=== PATIENT | male | born 1930 | race Caucasian/White ===

== ENCOUNTER 2016-12-07 09:00 | Day surgery (SDC) | payer MEDICARE ==
[2016-12-04 10:50] LABS: HEMATOCRIT 40.5 % (42.0-54.0); HEMOGLOBIN 13.8 g/dL (13.5-17.5); MCH 31.3 pg (26.0-34.0); MCHC 34.1 g/dL (31.0-37.0); MCV 91.8 fL (80.0-100.0); MEAN PLATELET VOLUME 10.2 fL (7.4-10.4); RBC 4.41 10x6/uL (4.20-6.10); RDW 12.8 % (11.5-14.5); WBC 2.4 10x3/uL (4.8-10.8)
[2016-12-04 10:55] LABS: PLATELET COUNT 70 10x3/uL (130-400)
[2016-12-04 11:04] LABS: ANION GAP 12.1 mmol/L (8-16); APTT 30.5 SECONDS (22.8-39.4); CALCIUM 8.8 mg/dL (8.5-10.1); CARBON DIOXIDE 28.9 mmol/L (21.0-32.0); CREATININE - SERUM 1.3 mg/dL (0.6-1.3); INR 1.04 (0.85-1.17); PROTIME 13.5 SECONDS (11.6-15.0)
[2016-12-04 11:34] LABS: EOSINOPHILS 2 % (0-7); LYMPHOCYTES 29 % (15-50); MONOCYTES 9 % (2-11); NEUTROPHILS 59 % (40-80)
[2016-12-04 11:37] LABS: PLATELET ESTIMATE DECREASED
[~2016-12-07] VITALS: Ht 172.7 cm; Wt 79.4 kg
[~2016-12-07 09:00] MED LIST: ASPIRIN EC81 M1 PO; LEVOTHYROXINE100 MCG PO; NORVASC10 MG PO
[2016-12-07 10:31] VITALS: BP 140/79; Ht 172.7 cm; Wt 79.4 kg
[2016-12-07] MEDS ORDERED: HYDROCODONE-APA1 TAB PO (13:05)
--- NOTE | 2016-12-14 13:14 | OP ---
PATIENT NAME: DUTCH MAS MEDICAL RECORD: [id number] :30 LOCATION:D.OPS ADMISSION DATE: SURGEON: CHRISSY CORDERO MD OPERATION DATE: 12/07/16 DATE OF OPERATION: 12/07/2016 PREOPERATIVE DIAGNOSES: Symptomatic right olecranon bursa. POSTOPERATIVE DIAGNOSIS: Symptomatic right olecranon bursa. PROCEDURE: Excision of symptomatic right olecranon bursa. SURGEON: Chrissy Cordero MD ANESTHESIA: General. INTRAOPERATIVE COMPLICATIONS: None. SUMMARY OF PATHOLOGIC FINDINGS: Essentially, this was a painful large olecranon bursa without infection. OPERATIVE SUMMARY IN DETAIL: After obtaining the appropriate preoperative orthopedic surgery consent as well as anesthetic consultation, evaluation and clearance, the patient was brought to the operating room and placed on the table in supine position. After general laryngeal mask was administered, the patient was placed in left lateral decubitus position. All pressure points were padded to include down leg peroneal nerve pad as well as axillary roll. The patient's right upper extremity was prepped and draped in routine sterile fashion. The arm was elevated and exsanguinated, tourniquet inflated to 250 mmHg. Midline incision was taken across the olecranon and dissected around both proximally and distally, medially and laterally. The entire bursal sac was taken out. The tip of the olecranon was smoothened of any osteophytic or prominent soft tissue abscess. The wound was copiously irrigated and then closed with #1 Vicryl, 2-0 Vicryl and skin heidi. Sterile dressings were applied. The patient was awakened and taken to the recovery room in stable condition. All final needle and sponge counts were correct. TRANSINT:[id number] Voice Confirmation ID: [id number] DOCUMENT ID: [id number] CHRISSY CORDERO MD at 1314 CC: [id number] DICTATION DATE: 12/08/16 1043 TELEMETRY MONITOR: 12/13/16 2348 [facility] 12/07/[address] [address]
== END 2016-12-07 15:05 | disposition home or self-care (01) ==
LOC: D.OPS 09:00 → D.PAN 18:30
PROVIDERS: Anesthesiology
DX: M70.21 Olecranon bursitis, right elbow (principal); I10 Essential (primary) hypertension; Z01.812 Encounter for preprocedural laboratory examination; R00.0 Tachycardia, unspecified

== ENCOUNTER → 2019-07-24 08:39 | Outpatient (CLI) | payer MEDICARE ==
[2016-12-07 10:31] VITALS: BMI 26.6
[~2019-07-24 08:39] MED LIST changes: +HYDROCODONE-APA1 TAB PO
== END | disposition home or self-care (01) ==
LOC: D.CT 08:39
PROVIDERS: ATTEND Internal Medicine Hematology & Oncology
DX: K76.9 Liver disease, unspecified (principal); D69.59 Other secondary thrombocytopenia

== ENCOUNTER 2019-08-12 06:37 | Outpatient (CLI) | payer MEDICARE ==
[~2019-08-12] VITALS: Ht 172.7 cm; Wt 74.1 kg
[2019-08-12 07:13] LABS: HEMATOCRIT 42.4 % (42.0-54.0); HEMOGLOBIN 14.4 g/dL (13.5-17.5); MCH 31.2 pg (26.0-34.0); MCV 91.8 fL (80.0-100.0); MEAN PLATELET VOLUME 10.6 fL (7.4-10.4); PLATELET COUNT 75 10x3/uL (130-400); RBC 4.62 10x6/uL (4.20-6.10); RDW 13.1 % (11.5-14.5); WBC 2.7 10x3/uL (4.8-10.8)
[2019-08-12 07:16] LABS: APTT 32.9 SECONDS (22.8-39.4); PROTIME 13.1 SECONDS (11.6-15.0)
[2019-08-12 07:54] LABS: CALCIUM 8.9 mg/dL (8.5-10.1); CARBON DIOXIDE 30.1 mmol/L (21.0-32.0); CREATININE - SERUM 1.2 mg/dL (0.6-1.3); POTASSIUM - SERUM 4.1 mmol/L (3.5-5.1)
[2019-08-12 08:03] VITALS: BP 142/70; Ht 172.7 cm; Wt 74.1 kg
[2019-08-12 09:12] LABS: LYMPHOCYTES 33 % (15-50); MONOCYTES 7 % (2-11); NEUTROPHILS 59 % (40-80); PLATELET ESTIMATE DECREASED
[2019-08-12 09:13] LABS: ANISOCYTOSIS OCC; HYPOCHROMASIA OCC
--- NOTE | 2019-08-12 11:59 | NUR ---
DC INSTRUCTIONS GIVEN TO PT/DAUGHTER. STATE UNDERSTANDING. DC'D IV CATH FULLY INTACT. DRESSING CDI.
--- NOTE | 2019-08-12 12:00 | NUR ---
PT LEFT UNIT VIA WC AT 1146
== END 2019-08-12 11:46 | disposition home or self-care (01) ==
LOC: D.SP 06:37 → D.CT 09:00 → D.SP 11:46
PROVIDERS: Radiology Diagnostic Radiology; ATTEND Internal Medicine Hematology & Oncology
DX: D69.59 Other secondary thrombocytopenia (principal); D72.819 Decreased white blood cell count, unspecified; E03.9 Hypothyroidism, unspecified; I10 Essential (primary) hypertension; F03.90 Unspecified dementia, unspecified severity, without behavioral disturbance, psychotic disturbance, mood disturbance, and anxiety; G40.909 Epilepsy, unspecified, not intractable, without status epilepticus

== ENCOUNTER 2019-12-30 09:57 | Outpatient (CLI) | payer MEDICARE ==
[~2019-12-30] VITALS: Ht 172.7 cm; Wt 72.7 kg
[2019-12-30 10:44] VITALS: BP 131/53; Ht 172.7 cm; Wt 72.7 kg
--- NOTE | 2019-12-30 12:40 | NUR ---
1200 INFUSION OF PLATLETS COMPLETED, LAB NOTIFIED. 1240 LAB NOTIFIED AGAIN OF CBC NEEDED TO BE DRAWN.
--- NOTE | 2019-12-30 12:58 | NUR ---
1258 LAB HERE FOR POST DRAW.
[2019-12-30 13:16] LABS: HEMOGLOBIN 13.8 g/dL (13.5-17.5); MCH 31.1 pg (26.0-34.0); MCHC 33.7 g/dL (31.0-37.0); MCV 92.3 fL (80.0-100.0); MEAN PLATELET VOLUME 10.4 fL (7.4-10.4); RBC 4.44 10x6/uL (4.20-6.10); WBC 2.7 10x3/uL (4.8-10.8)
[2019-12-30 13:17] LABS: PLATELET COUNT 94 10x3/uL (130-400)
--- NOTE | 2019-12-30 13:49 | NUR ---
[address] MONTESINOS' OFFICE. OKAYD TO RELEASE HOME. IV DC'D WITH CATH INTACT. DC INSTS. GIVEN RELEASED IN WC WITH ESCORT AND DAUGHTER.
[2019-12-30 14:00] LABS: LYMPHOCYTES 43 % (15-50); MONOCYTES 7 % (2-11); NEUTROPHILS 50 % (40-80); PLATELET ESTIMATE DECREASED
== END 2019-12-30 13:40 | disposition home or self-care (01) ==
LOC: D.OPS 09:57
PROVIDERS: Family Medicine; ATTEND Internal Medicine Hematology & Oncology
DX: D64.9 Anemia, unspecified (principal)

== ENCOUNTER 2020-01-12 08:15 | Outpatient (CLI) | payer MEDICARE ==
[~2020-01-12] VITALS: Ht 172.7 cm; Wt 72.7 kg
[2020-01-12 09:16] VITALS: BP 144/64; Ht 172.7 cm; Wt 72.7 kg
== END 2020-01-12 10:25 | disposition home or self-care (01) ==
LOC: D.OPS 08:15
PROVIDERS: ATTEND Internal Medicine Hematology & Oncology
DX: D69.6 Thrombocytopenia, unspecified (principal)